=== PATIENT | female | born 1950 | race Caucasian/White ===

== ENCOUNTER 2021-03-23 10:16 | Outpatient (REF) | payer MEDICARE, OTHER, SELFPAY ==
--- NOTE | 2021-03-23 13:28 | MHC.AU.ANR ---
Adult Audiological Evaluation Date of Visit: 03/23/21 Reason for Appointment: Audiological evaluation due to tinnitus. Patient reports that she began noticing noises in her ears about a year ago. She describes it as peepers and rain. She is able to ignore it most of the time and doesn't find it bothersome. She denies any significant concerns for her hearing. Does patient feel they have a hearing loss?: Unsure Has hearing been tested previously?: No Hearing Handicap Inventory: HHIE SCORE: 4 Based on HHIE score, patient has: No perceived hearing handicap Ear History: Bothersome Tinnitus/Ringing/Noises in Ears: Both Ears Medical History: Medical History: High Blood Pressure, Measles Medical History (Other): Eye surgery in childhood, voice disorder Medication List: Botox injections for voice, estradiol 10 mcg, Amlodipine 10 mg, Topical medications to treat psoriasis, Fluticasone 0.05 cream, Desonide cream 0.05%, Clobetasol 0.05, fluticasone 0.05 solution Otoscopy: Right Ear: Unremarkable Left Ear: Unremarkable Tympanometry: Tympanometry performed due to: To assess integrity of the middle ear system Right Ear: Normal Middle Ear System (Type A) Left Ear: Normal Middle Ear System (Type A) Hearing Evaluation: Transducer(s) Used: Insert Earphones, Bone Conduction Method: Conventional Audiometry Stimuli Used: Pure Tones Right Ear: Description of Hearing: Normal hearing from 250-1000 Hz, sloping to a mild to moderately severe sensorineural hearing loss from 4873-7257 Hz. Left Ear: Description of Hearing: Normal hearing from 250-1000 Hz, sloping to a mild to moderate sensorineural hearing loss from 6875-8361 Hz. Speech Recognition Threshold (SRT): Method Used: Monitored Live Voice Stimuli Used: Spondee Words Right Ear: 15 dBHL Left Ear: 15 dBHL Word Discrimination: Method: Recorded Lists Word Lists Used: NU-6 Right Ear: 96% at 60 dBHL Left Ear: 100% at 60 dBHL Recommendations: Audiological re-evaluation in one year. Patient does not feel they are ready for amplification at this time. Ms. Stanley is considered a borderline candidate for amplification. She deferred at this time. Diagnosis: Primary Diagnosis: H90.3 Bilateral Sensorineural Hearing Loss Secondary Diagnosis: H93.13 Tinnitus, Bilateral Services Performed: Services Performed: Comprehensive Audiological Evaluation (CPT 76810) Tympanometry (CPT 36102) Signature: Provider: Piotr Nicholson, CCC-A
== END 2021-03-23 10:17 | disposition home or self-care (01) ==
LOC: HO.SH 10:16
PROVIDERS: Visit Provider Nurse Practitioner Family
DX: H90.3 Sensorineural hearing loss, bilateral (principal); H93.13 Tinnitus, bilateral
CPT/HCPCS: 92557; 92567

== ENCOUNTER 2023-06-01 11:19 | Outpatient (REF) | payer MEDICARE, OTHER, SELFPAY | END 2023-06-01 11:20 | disposition home or self-care (01) | LOC: HO.SH 11:19 | PROVIDERS: Visit Provider Physician Assistant | DX: Z01.118 Encounter for examination of ears and hearing with other abnormal findings (principal); H91.93 Unspecified hearing loss, bilateral | CPT/HCPCS: 92557; 92567 ==